=== PATIENT | male | born 1965 | race Hispanic/Latino ===

== ENCOUNTER 2019-11-28 10:52 | Emergency (ER) | payer SELFPAY ==
--- NOTE | ~2019-11-28 | US_ITS ---
EXAMINATION: US abdomen limited DATE: 11/28/2019 12:57 INDICATION: Abnormal liver function tests. Nausea and vomiting. TECHNIQUE: Multiple grayscale and Doppler ultrasound images of the abdomen were obtained. COMPARISON: CT abdomen and pelvis 06/10/2019 FINDINGS: The visualized portions of the head and body of the pancreas are normal. There is diffuse h epatic steatosis. No liver surface nodularity. There is normal flow in main portal vein. The gallblad polina is normal in size. No gallstones or gallbladder wall thickening. There was no sonographic Ravi sign. The common duct is normal and measures 3 mm. IMPRESSION: 1. Diffuse hepatic steatosis. Reviewed, dictated and finalized at location A.
[2019-11-28 11:12] VITALS: BP 143/94; PULSE 91; RESP 18; TEMP 36.9; O2SAT 100
[2019-11-28 11:41] LABS: Bilirubin,Total 2.4 mg/dL (0.2-1.3); Blood Urea Nitrogen 8 mg/dL (9-20); Calcium 8.3 mg/dL (8.4-10.2); Carbon Dioxide 22 mmol/L (22-30); Chloride 96 mmol/L (98-107); Estimated CRCL calculation 128 ml/min; Estimated Glomerular Filt Rate > 60; Glucose 166 mg/dL (75-110); Potassium 3.8 mmol/L (3.4-5.0); Sodium 130 mmol/L (137-145)
[2019-11-28 11:42] LABS: Alanine Aminotransferase 285 U/L (4-50); Albumin Level 3.8 g/dL (3.5-5.1); Alkaline Phosphatase 241 U/L (38-126); Aspartate Amino Transferase 670 U/L (17-59); Total Protein 6.7 g/dL (6.3-8.2)
[2019-11-28 11:48] LABS: Lipase 235 U/L (23-300)
[2019-11-28 11:59] VITALS: O2SAT 97
[2019-11-28 12:02] VITALS: PULSE 97; RESP 24; O2SAT 98
--- NOTE | 2019-11-28 12:02 | PC.NURSE ---
Pt states he has had nausea, vomiting and diarrhea. Pt denies pain. Pt denies being around anyone who is sick. Pt denies drugs or ETOH.
[2019-11-28 12:10] LABS: Hematocrit 38.9 % (42.0-52.0); Mean Corpuscular Hemoglobin 32.7 pg (26-34); Mean Corpuscular Volume 90.9 fl (80-100); Mean Platelet Volume 9.8 fl (7.4-10.4); Platelet Count Result 120 k/mm3 (150-375); Red Blood Count 4.28 M/mm3 (4.6-6.20); Red Cell Distribution Width 17.9 % (11.5-14.5); White Blood Count 5.7 K/mm3 (4.5-10.0)
[2019-11-28 12:11] LABS: Eosinophils Percent Auto 0.3 % (0-4.4); Immature Granulocyte Absolute 0.03 K/mm3 (0.00-0.031); Immature Granulocyte Percent A 0.5 % (0-0.5); Lymphocytes Absolute Auto 1.47 K/mm3 (0.9-3.2); Lymphocytes Percent Auto 25.7 % (18.3-44.2); Monocytes Absolute Auto 0.4 K/mm3 (0.1-0.6); Monocytes Percent Auto 7.5 % (2.6-8.5); Neutrophils Absolute Auto 3.7 K/mm3 (1.3-6.7)
[2019-11-28 12:12] LABS: Basophils Absolute Auto 0.1 K/mm3 (0.0-0.1)
--- NOTE | 2019-11-28 12:19 | ED.NAVMDI ---
HPI - Nausea/Vomiting/Diarrhea General Chief complaint: Nausea/Vomiting/Diarrhea Stated complaint: N/V Time Seen by Provider: 11/28/19 12:01 History of Present Illness HPI Narrative: Patient is a 54-year-old male who presents the ER with nausea and fatigue. Symptoms have been ongoing for the last 2 weeks. Reports he awakes from sleep nauseous and does not have energy. She has not had any weight loss. She has history of alcohol pancreatitis. Reports he continues to drink alcohol but only a single 24 ounce can a day. He is without abdominal pain. He did have one episode of emesis today after eating a banana. Feels different than when he was hospitalized 5 months ago with alcoholic pancreatitis. Related Data Allergies Allergy/AdvReac Type Severity Reaction Status Date / Time No Known Drug Allergies Allergy Unknown Verified 11/28/19 12:30 Review of Systems Review of Systems: All systems reviewed & are unremarkable except as noted in HPI and below Constitutional: Constitutional: Denies chills, Denies fever(s) and Reports weakness ENT: Denies nasal congestion and Denies sore throat Cardiovascular: Cardiovascular: Denies chest pain and Denies radiating jaw, neck or arm pain Respiratory: Respiratory: Denies cough, Denies dyspnea and Denies wheezing Gastrointestinal: Gastrointestinal: Denies abdominal pain, Denies diarrhea, Reports nausea and Reports vomiting Comments: No dark black stools. [facility] Past Medical History Medical History (Updated 11/28/19 @ 13:53 by Fco Beltrán MD) Acute pancreatitis Alcoholic hepatitis Daily consumption of alcohol GERD (gastroesophageal reflux disease) Tobacco dependence Surgical History Surgical History No significant past surgical history Social History Social History (Updated 06/10/19 @ 21:15 by Elysia Cole PA-C) Social History: The patient lives in [place] with his girlfriend. He smokes 8-10 cigarettes per day. And drinks 5-6 beers per day. No illicit drug use. He designates his son, Nilesh, as his surrogate decision maker and he wishes to be a full code. Smoking packs per day: 0.5 Smoking cigarettes per day: 10.0 Smoking status: Current every day smoker Tobacco type: cigarettes Alcohol intake: current Drinks per week: 30 Substance use: never Substance use type: does not use Gender identity (if verbalized by the patient): Male Spiritual care concerns: No Agree to blood products: Yes Exam Narrative: Exam Narrative: GENERAL: Well-appearing, well-nourished, and in no acute distress. HEAD: Normocephalic, atraumatic. EYES: PERRL and EOMI. CHEST: Clear to auscultation. No respiratory distress. HEART: Regular rate and rhythm. Normal peripheral pulses. ABDOMEN: Soft, nontender, nondistended, normal active bowel sounds. EXTREMITIES: Normal range of motion. No edema. SKIN: Warm, dry, no rash. NEURO: Alert and oriented x3. PSYCH: Normal mood and affect. Course Course Emergency Course: Discussed lab results with Dr. Thorpe. Recommends follow-up outpatient and cessation of alcohol. Patient has been educated in regards to this. He will be provided with antiemetics for home as well. Vital Signs Vital signs: Vital Signs Temperature 98.5 F 11/28/19 11:12 Pulse Rate 91 11/28/19 11:12 Respiratory Rate 18 11/28/19 11:12 Blood Pressure 143/94 H 11/28/19 11:12 Pulse Oximetry 100 11/28/19 11:12 Temperature 98.5 F 11/28/19 11:12 Pulse Rate 97 11/28/19 12:02 Respiratory Rate 24 H 11/28/19 12:02 Blood Pressure 143/94 H 11/28/19 11:12 Pulse Oximetry 98 11/28/19 12:02 MDM - Nausea/Vomiting/Diarrhea Lab Data Result diagrams: 11/28/19 11:19 11/28/19 11:19 Labs: Lab Results 11/28/19 11/28/19 Range/Units 11:19 11:19 WBC 5.7 (4.5-10.0) K/mm3 RBC 4.28 L (4.6-6.20) M/mm3 Hgb 14.0 (14.0-18.0) g/dL
[2019-11-28] MEDS: ONDANSETRON INJ 4 MG/2 ML VIAL IV PUSH (12:30)
== END 2019-11-28 14:08 | disposition home or self-care (01) ==
PROVIDERS: Emergency Medicine; Emergency Provider Emergency Medicine; PCP Ophthalmology
DX: K70.10 Alcoholic hepatitis without ascites (principal); K21.9 Gastro-esophageal reflux disease without esophagitis; F17.210 Nicotine dependence, cigarettes, uncomplicated
CPT/HCPCS: 36415; 76705; 80053; 83690; 85025; 96374; 99284; J2405

== ENCOUNTER 2019-12-15 22:41 | Emergency (ER) | payer SELFPAY ==
--- NOTE | ~2019-12-15 | XR_ITS ---
EXAMINATION: [id number] DATE: 12/15/2019 23:01 INDICATION: Lower lateral left rib pain. TECHNIQUE: A frontal inspiratory view of the chest and 3 views of the left ribs were obtained. COMPARISON: None FINDINGS: Nondisplaced fractures of the anterior left 10th and 11th rib fractures. Mild bandlike opacities in t he bilateral lower lung zones and favor atelectasis over pneumonia. No pleural effusion or pneumothor ax. Cardiomediastinal silhouette is normal. IMPRESSION: 1. Undisplaced anterior left 10th and 11th rib fractures. 2. Mild bibasilar lung disease and favor atelectasis likely related to splinting over pneumonia. Reviewed, dictated and finalized at location A. IMPRESSION: 1. Undisplaced anterior left 10th and 11th rib fractures. 2. Mild bibasilar lung disease and favor atelectasis likely related to splintin g over pneumonia.
[2019-12-15 22:44] VITALS: BP 122/78; PULSE 84; RESP 20; TEMP 36.6; O2SAT 98
--- NOTE | 2019-12-16 00:11 | ED.FALL ---
HPI - Fall General Chief Complaint: Fall Stated Complaint: left side pain after fall in shower Time Seen by Provider: 12/15/19 22:49 Source: patient Mode of arrival: ambulatory Limitations: language barrier History of Present Illness HPI Narrative: This patient is a 54 year old male who presents for evaluation of left rib pain s/p fall. Patient is haitian speaking with some understanding. His family is at bedside helping with translation. PAtient slipped in the bath tub prior arrival and he landed on his left side. He has not pain while laying in bed but he has pain with movement. He denies hitting his head or LOC. He denies sob , lightheadedness or dizziness. Related Data Allergies Allergy/AdvReac Type Severity Reaction Status Date / Time No Known Drug Allergies Allergy Unknown Verified 12/15/19 22:47 Review of Systems Review of Systems: All systems reviewed & are unremarkable except as noted in HPI and below Constitutional: Constitutional: Denies chills, Denies fever(s) and Denies weakness Cardiovascular: Cardiovascular: Denies rapid heart rate and Denies radiating jaw, neck or arm pain Respiratory: Respiratory: Denies cough, Denies dyspnea and Denies wheezing Gastrointestinal: Gastrointestinal: Denies abdominal pain, Denies nausea and Denies vomiting PMFSH Past Medical History Medical History (Updated 12/16/19 @ 00:51 by Marina Lopez MD) Acute pancreatitis Alcoholic hepatitis Daily consumption of alcohol GERD (gastroesophageal reflux disease) Tobacco dependence Surgical History Surgical History No significant past surgical history Social History Social History (Updated 06/10/19 @ 21:15 by Elysia Cole PA-C) Social History: The patient lives in [place] with his girlfriend. He smokes 8-10 cigarettes per day. And drinks 5-6 beers per day. No illicit drug use. He designates his son, Nilesh, as his surrogate decision maker and he wishes to be a full code. Smoking packs per day: 0.5 Smoking cigarettes per day: 10.0 Smoking status: Current every day smoker Tobacco type: cigarettes Alcohol intake: current Drinks per week: 30 Substance use: never Substance use type: does not use Gender identity (if verbalized by the patient): Male Spiritual care concerns: No Agree to blood products: Yes Exam Const: General: no acute distress and alert Orientation/consciousness: patient oriented x3 HENMT: Head: normocephalic and atraumatic Face and sinus: sinuses nontender and face symmetric Eyes: EOM: EOMs intact bilaterally Chest: Chest palpation & inspection: tenderness rib (left lateral lower, no bruising, no swelling, no crepitus) Resp: Effort & Inspection: normal respiratory effort and no retractions Auscultation: clear to auscultation bilaterally Cardio: Rate: regular rate Rhythm: regular rhythm GI: Inspection: normal to inspection GI Palp: Yes Soft to palpation, No Firmness to palpation present (GI) and No Tenderness to palpation present (GI) Auscultation: normal bowel sounds Back/Spine/Pelvis: Back: no CVA tenderness Skin: General skin exam: normal color Rashes: no rashes Neuro: General: patient oriented x3 and moves all extremities Extrem: General: normal to inspection Psych: Mental Status: mental status grossly normal Affect: normal affect Course Reevaluation(s) Reevaluation #1: I have discussed with patient no definitie fracture but he still may have one. He was given incentive spirometer and I discussed pain control. Date: 12/16/19 Time: 00:49 Vital Signs Vital signs: Vital Signs Temperature 98 F 12/15/19 22:44 Pulse Rate 84 12/15/19 22:44 Respiratory Rate 12/15/19 22:44 Blood Pressure 122/78 12/15/19 22:44 Pulse Oximetry 98 12/15/19 22:44 Temperature 98 F 12/15/19 22:44 Pulse Rate 84 12/15/19 22:44 Respiratory Rate 12/15/19 22:44 Bl
[2019-12-16] MEDS: ONDANSETRON HCL ODT 4 MG TABLET PO (00:30)
== END 2019-12-16 01:30 | disposition home or self-care (01) ==
PROVIDERS: Emergency Provider General Practice; PCP Ophthalmology
DX: S20.212A Contusion of left front wall of thorax, initial encounter (principal); F17.210 Nicotine dependence, cigarettes, uncomplicated; K21.9 Gastro-esophageal reflux disease without esophagitis; K70.10 Alcoholic hepatitis without ascites; W18.2XXA Fall in (into) shower or empty bathtub, initial encounter
CPT/HCPCS: 71101; 99283; A9270